=== PATIENT | female | born 1945 | race Caucasian/White ===

== ENCOUNTER 2020-09-08 12:52 | Observation (INO) | payer MEDICARE ==
[~2020-09-08] VITALS: Ht 154.9 cm; Wt 96.3 kg
[2020-09-08] MEDS ORDERED: LOSA50TA88 PO (13:25)
[2020-09-08] MEDS ORDERED: CALC1TAB63 PO (13:25)
[2020-09-08] MEDS ORDERED: ECOT81TA5 PO ×2 (13:25)
[2020-09-08] MEDS ORDERED: ATOR1TAB21 PO (13:25)
[2020-09-08] MEDS ORDERED: METF-838 PO (13:25)
[2020-09-08] MEDS ORDERED: GLIP10TA6 PO (13:25)
[2020-09-08] MEDS ORDERED: LEXA1TAB PO (13:25)
--- NOTE | 2020-09-08 13:49 | REP ---
INDICATION: neuro. COMPARISON: None. TECHNIQUE: Helical scanning is acquired. 5 mm axial images were reformatted. Coronal MPR images were generated. FINDINGS: Digital preliminary software analyst radiograph is unremarkable. Bone window settings demonstrate intact bony calvarium. The visualized paranasal sinuses are clear. No intraorbital abnormality is appreciated. On soft tissue window settings, there is fairly extensive small-vessel atherosclerotic low-density in the periventricular white matter of the supratentorial brain bilaterally. There is moderate generalized volume loss. There is low-density area in the anterior limb of the internal capsule on the right which may be lacunar infarct age indeterminate. No acute cortical infarction is appreciated. There is no evidence of intracranial hemorrhage. No extra-axial fluid collection, mass, or midline shift is seen. IMPRESSION: Generalized volume loss and small vessel changes fairly extensively in the frontal and parietal lobes bilaterally. There is low-density in the anterior limb of the internal capsule on the right of uncertain etiology. This could be a lacunar infarct, age indeterminate, or more small vessel microvascular ischemic change. There is no evidence of hemorrhage or acute cortical infarction.. <Electronically signed by Jon Miller > 09/08/20 [id number]
[2020-09-08 15:04] LABS: BASO % 0.4 % (0.0-1.0); EOS # 0.1 10^3/uL (0.0-0.5); EOS % 1.1 % (0.0-3.0); HEMATOCRIT 40.4 % (36.0-47.0); HEMOGLOBIN 13.4 g/dl (12.0-15.5); LYMPH % 11.3 % (24.0-44.0); MEAN CORPUSCULAR HGB CONC 33.2 g/dl (32.0-36.5); MEAN CORPUSCULAR VOLUME 90.6 fl (80.0-96.0); MONO # 0.7 10^3/uL (0.0-0.8); MONO % 8.7 % (2.0-8.0); NEUTROPHILS # 6.7 10^3/uL (1.5-8.5); NEUTROPHILS % 78.3 % (36.0-66.0); PLATELET COUNT, AUTOMATED 289 10^3/uL (150-450); RED BLOOD COUNT 4.46 10^6/uL (4.00-5.40); WHITE BLOOD COUNT 8.6 10^3/uL (4.0-10.0)
--- NOTE | 2020-09-08 15:14 | ECGEPIP ---
[facility] - ED Test Date: 2020-09-08 Pat Name: COURTNEY ALVARES Department: Room: - Gender: Female Pastoral Counselor: : 1945 Requested By: CRISTIANE Fierro Order Number: [id number] Reading MD: Jamey Bass Measurements Intervals [place] Rate: 81 P: 20 GA: 154 QRS: 25 QRSD: 146 T: 7 QT: 414 QTc: 480 Interpretive Statements Sinus rhythm with premature ventricular complexes or fusion complexes Right bundle branch block NO PRIORS FOR COMPARISON Electronically Signed on 09-08-2020 15:14:16 EDT by Jamey Bass
[2020-09-08 15:15] LABS: INR 0.94; PARTIAL THROMBOPLASTIN TIME 28.9 SECONDS (24.2-38.5); PROTHROMBIN TIME 12.8 SECONDS (12.5-14.3)
[2020-09-08 15:33] LABS: BLOOD UREA NITROGEN 14 MG/DL (7-18); CALCIUM LEVEL 9.1 MG/DL (8.8-10.2); CARBON DIOXIDE LEVEL 27 MEQ/L (21-32); CHLORIDE LEVEL 105 MEQ/L (98-107); CK-MB VALUE MASS 2.5 NG/ML (<3.6); CPK CREATINE PHOSPHOKINASE 132 U/L (26-192); CREATININE FOR GFR 0.71 MG/DL (0.55-1.30); GLOMERULAR FILTRATION RATE > 60.0 (>39); GLUCOSE, FASTING 214 MG/DL (70-100); MB/CK RELATIVE INDEX 1.89 (< OR =4); POTASSIUM SERUM 3.7 MEQ/L (3.5-5.1); SODIUM LEVEL 139 MEQ/L (136-145); TROPONIN I < 0.02 NG/ML (< 0.10)
[2020-09-08 15:45] LABS: RSV AMPLIFICATION NEGATIVE (NEGATIVE)
--- NOTE | 2020-09-08 15:45 | REP ---
INDICATION: CVA. COMPARISON: No comparison chest x-ray. TECHNIQUE: Portable upright AP chest radiograph. FINDINGS: The lungs are well inflated and free of infiltrate. Pleural angles are sharp. Heart size is normal. Pulmonary vasculature is not increased. The right hemidiaphragm is mildly elevated. IMPRESSION: No active disease. <Electronically signed by Jon Miller > 09/08/20 0921
[2020-09-08] MEDS ORDERED: ASPIRIN 325 MG TAB PO ONE (16:10)
[2020-09-08] MEDS ORDERED: MAALOX 30 ML SUSP *UDC PO PRN (16:40)
[2020-09-08] MEDS ORDERED: ACETAMINOPHEN TAB 650MG DOSE (2X325MG) PO PRN (16:40)
[2020-09-08] MEDS ORDERED: MOM 30ML SUSPENSION UDC PO PRN (16:40)
[2020-09-08] MEDS ORDERED: GLUCAGON INJ 1MG VIAL SC PRN (17:00)
[2020-09-08] MEDS ORDERED: DEXTROSE 50% 50 ML SYRINGE IV PRN (17:00)
[2020-09-08] MEDS ORDERED: GLUCOSE 4GM CHEW TABLET PO PRN (17:00)
--- NOTE | 2020-09-08 17:07 | HPEPDOC ---
General Date of Admission Date of Service: Sep 08, 2020 Attending Physician: JENNY STACY MD Chief Complaint The patient is a 75-year-old female admitted with a reason for visit of Dizziness. Source: Patient Exam Limitations: No limitations History of Present Illness 75 years old female with past medical history of diabetes mellitus hypertension hyperlipidemia s/p bilateral knee replacement s/p hysterectomy was in usual stat e of health till Monday when she started feeling numbness of her left hand along with the dizziness and unsteadiness on her feet she went to [facility] this morning and was referred to the emergency room to rule out CVA. Patient denies any motor deficit vision loss chest pain shortness of breath etc. patient already wants to leave the hospital she is uncomfortable staying in the emergency room, patient was informed that she needs work-up including MRI to make the final diagnosis of her symptoms she understand but she will think about it. Home Medications Scheduled Aspirin (Ecotrin) 81 Mg Tablet.dr, 81 MG PO QHS, (Reported) Atorvastatin Calcium (Atorvastatin Calcium) 20 Mg Tablet, 20 MG PO DAILY, (Reported) Calcium Carbonate/Vitamin D3 (Calcium 600-Vit D3 400 Tablet) 1 Each Tablet, 1 TAB PO BID, (Reported) Escitalopram Oxalate (Lexapro) 10 Mg Tablet, 10 MG PO DAILY, (Reported) Glipizide (Glipizide) 10 Mg Tablet, 10 MG PO BID, (Reported) Losartan Potassium (Losartan Potassium) 50 Mg Tablet, 50 MG PO QHS, (Reported) Metformin HCl (Metformin HCl ER) 500 Mg Tab.er.24h, 500 MG PO BIDWM, (Reported) Allergies Coded Allergies: latex (Verified Allergy, Intermediate, rash, 09/08/20) Past Medical History Medical History Diabetes mellitus hypertension hyperlipidemia Surgical History Status post hysterectomy and bilateral knee replacements also patient had a bilateral lumpectomy in the past Social History * Smoker: Denies Alcohol: Denies Drugs: denies As above A-FIB/CHADSVASC A-FIB History Current/History of A-Fib/PAF?: No Review of Systems Constitutional: Reports: Other (Dizziness) Eyes: Denies: Pain, Vision change, Conjunctivae inflammation, Eyelid inflammation, Redness, Other ENT: Denies: Head Aches, Ear Pain, Dysphagia, Sinus Congestion, Post Nasal Drip, Sore Throat, Epistaxis, Other Symptoms Skin: Denies: Rash, Lesions, Jaundice, Bruising, Itching, Dry, Breakdown, Nail Changes, Other Pulmonary: Denies: Dyspnea, Cough, Pleuritic Chest Pain, Other Symptoms Gastrointestinal: Denies: Nausea, Vomiting, Abdominal Pain, Diarrhea, Constipation, Melena, Hematochezia, Other Symptoms Genitourinary: Denies: Dysuria, Frequency, Incontinence, Hematuria, Retention, Other Symptoms Hematologic: Denies: Bruising, Bleeding Excessively, Petecchia, Purpura, Enlarged Lymph Nodes, Other Hematologic Endocrine: Denies: Polydipsia, Polyphagia, Polyuria, Heat Intolerance, Cold Intolerance, Other Endocrine Sx Musculoskeletal: Denies: Neck Pain, Back Pain, Shoulder Pain, Arm Pain, Hand Pain, Leg Pain, Foot Pain, Joint Pain, Muscle Pain, Spasms, Other Symptoms Neurological: Reports: Other Symptoms (Numbness of left hand dizziness unsteady gait) Psych: Denies: Mood Normal, Anxiety, Depression, Memory Issues, Thoughts of S elf Harm, Anger, Thoughts of Harming Other, Other Psych Physical Examination General Exam: Positive: Alert, Cooperative Eye Exam: Positive: PERRLA, Conjunctiva & lids normal ENT Exam: Positive: Atraumatic Neck Exam: Positive: Supple Chest Exam: Positive: Clear to auscultation, Normal air movement Heart Exam: Positive: Rate Normal, Normal S1, Normal S2 Abdomen Exam: Positive: Normal bowel sounds, Soft Extremity Exam: Positive: Other Skin Exam: Positive: Nl turgor and temperature Neuro Exam: Positive: Other (No focal motor or sensory deficit) Psych Exam: Positive: Mood NL, Oriented x 3 Vital Signs Vital Signs Date Time Temp Pulse Resp B/P (MAP) Pulse Ox O2 Delivery O2 Flow Rate FiO2 09/08/20 16:37 09/08/20 16:37 84 16 94 Room Air 09/08/20 12:54 97.1 Laboratory Data Labs 24H Laboratory Tests 2 09/08/20 14:53: Immature Granulocyte % (Auto) 0.2, Neutrophils (%) (Auto) 78.3H, Lymphocytes (%) (Auto) 11.3L, Monocytes (%) (Auto) 8.7H, Eosinophils (%) (Auto) 1.1, Basophils (%) (Auto) 0.4, Neutrophils # (Auto) 6.7, Lymphocytes # (Auto) 1.0L, Monocytes # (Auto) 0.7, Eosinophils # (Auto) 0.1, Basophils # (Auto) 0.0, Nucleated Red Blood Cells % (auto) 0.0, Prothrombin Time 12.8, Prothromb Time International Ratio 0.94, Activated Partial Thromboplast Time 28.9, Anion Gap 7L, Glomerular Filtration Rate > 60.0, Calcium Level 9.1, Total Creatine Kinase 132, Creatine Kinase MB 2.5, Creatine Kinase MB Relative Index 1.89, Troponin I < 0.02, Coronavirus (COVID-19)(PCR) NEGATIVE, Influenza Type A (RT-PCR) NEGATIVE, Influenza Type B (RT-PCR) NEGATIVE, Respiratory Syncytial Virus (PCR) NEGATIVE CBC/BMP Laboratory Tests 09/08/20 14:53 Problems (1) TIA (transient ischemic attack) Plan / VTE VTE Prophylaxis Ordered?: Yes Plan Plan Patient examined at bedside she is awake alert oriented in no apparent distress, vital signs are stable Patient CBC CMP essentially within normal limit Covid is negative troponin is less than 0.02 blood glucose is 214 CT head shows volume loss and indeterminant possibly old lacunar infarct but no acute CVA or hemorrhage Chest x-ray within normal limit, EKG shows normal sinus rhythm with occasional PVCs and right bundle branch block #1 TIA rule out CVA # 2 diabetes mellitus type 2 with possible diabetic neuropathy #3 hyperlipidemia #4 hypertension Admit patient to observation to telemetry unit Cardiac monitoring Lipid profile and hemoglobin A1c and serial troponins Patient received 1 dose of aspirin 325 mg p.o. in ED and will continue the same from tomorrow Patient already on Lipitor 20 mg p.o. daily and will continue the same Echocardiogram Bilateral carotid Dopplers MRI of the brain ordered from ED awaiting radiology procedure PT/OT/ST evaluation in a.m. Neurology consult has been requested Continue all home medications DVT prophylaxis with heparin Diet is diabetic diet Fingerstick blood sugar before every meal and at bedtime with coverage JENNY STACY MD Sep 08, 2020 17:07
[2020-09-08] MEDS: HumaLOG INSULIN (NovoLOG) PER UNIT SC SCH (17:30)
[2020-09-08] MEDS: metFORMIN XR 500MG TAB *GLUCOPHAGE XR PO SCH (18:00)
[2020-09-08] MEDS: glipiZIDE (GLUCOTROL) 5 MG TAB PO SCH (18:36)
[2020-09-08] MEDS ORDERED: LOSARTAN 50MG TABLET PO SCH (21:00)
[2020-09-08] MEDS ORDERED: ATORVASTATIN 20 MG TAB PO SCH (21:00)
--- NOTE | 2020-09-08 21:33 | REPVR ---
PROCEDURE INFORMATION: Exam: US Duplex Bilateral Extracranial Arteries Exam date and time: 09/08/2020 9:15 PM Age: 75 years old Clinical indication: Altered mental status/memory loss; Other: TIA TECHNIQUE: Imaging protocol: Real-time Duplex ultrasound scan of the bilateral carotid and vertebral arteries combining soriano scale, color Doppler and spectral waveform analysis. Bilateral exam. COMPARISON: MRA BRAIN W/O CONTRAST 09/08/2020 8:18 PM FINDINGS: Right side: The right ICA/CCA ratio is 0.7 and the peak velocity of the right internal carotid artery is 73 cm/s and and within the normal range. The amount of narrowing of the right internal carotid artery would be less than 50%. There is minimal soft plaque. The right vertebral artery is antegrade. Left side: The left ICA/CCA ratio is 0.7 and the peak velocity of the left internal carotid artery is 77 cm/s and all within the normal range. The amount of narrowing of the left internal carotid artery would be less than 50%. There is minimal soft plaque. The left vertebral artery is antegrade. IMPRESSION: No significant stenosis right or left carotid bifurcation. REFERENCES: SRU CRITERIA. The degree of internal carotid artery stenosis is based on criteria defined by the Society of Radiologists in Ultrasound (SRU). Normal is no stenosis. Mild is less than 50% stenosis. Moderate is 50-69% stenosis. Severe is greater than 69% stenosis to near occlusion. Near occlusion is a markedly narrowed lumen. Total occlusion is no detectable patent lumen. Electronically signed by: Ananda Francis On 09/08/2020 21:33:07 PM
--- NOTE | 2020-09-08 22:07 | REPVR ---
PROCEDURE INFORMATION: Exam: MR Head Without Contrast Exam date and time: 09/08/2020 8:29 PM Age: 75 years old Clinical indication: Patient HX: Dizziness, weakness, ; additional info: CVA TECHNIQUE: Imaging protocol: MR of the head without contrast. COMPARISON: CT Head without contrast 09/08/2020 1:20 PM FINDINGS: Brain: There is bright signal intensity throughout the white matter right and left hemisphere and very extensive consistent with chronic ischemic changes. No evidence of acute stroke. Cerebral ventricles: There is moderate diffuse atrophy with prominence of the ventricles. Bones/joints: Unremarkable. Paranasal sinuses: Clear paranasal sinuses. Mastoid air cells: There mastoid air cells. Orbital cavity: Unremarkable. Soft tissues: Unremarkable. Other vasculature: The vessels of the [id number] have a normal signal void. IMPRESSION: Severe chronic ischemic changes. Electronically signed by: Ananda Francis On 09/08/2020 22:07:20 PM
--- NOTE | 2020-09-08 22:12 | REPVR ---
PROCEDURE INFORMATION: Exam: MRA Head Without Contrast; Arteriography Exam date and time: 09/08/2020 8:29 PM Age: 75 years old Clinical indication: Dizziness and giddiness; Patient HX: Dizziness, weakness, ; additional info: CVA TECHNIQUE: Imaging protocol: Magnetic resonance angiography head without contrast. Exam focused on the arteries. COMPARISON: CT Head without contrast 09/08/2020 1:20 PM FINDINGS: ANTERIOR CIRCULATION: There is no evidence of aneurysm of the [id number]. There is no evidence of abnormal vessels. IMPRESSION: Normal appearing MR angiogram. Electronically signed by: Ananda Francis On 09/08/2020 22:12:03 PM
[2020-09-08] MEDS: DOCUSATE SODIUM 100MG CAPSULE PO SCH (22:41)
[2020-09-08 22:42] VITALS: BP 137/90
[2020-09-08] MEDS: HEPARIN SOD (PORCINE) 5000UNITS/ML 1ML VIAL/SYRINGE SC SCH (22:45)
[2020-09-09 06:50] LABS: HEMATOCRIT 38.4 % (36.0-47.0); HEMOGLOBIN 13.2 g/dl (12.0-15.5); MEAN CORPUSCULAR HEMOGLOBIN 31.4 pg (27.0-33.0); MEAN CORPUSCULAR HGB CONC 34.4 g/dl (32.0-36.5); MEAN CORPUSCULAR VOLUME 91.2 fl (80.0-96.0); PLATELET COUNT, AUTOMATED 254 10^3/uL (150-450); RED BLOOD COUNT 4.21 10^6/uL (4.00-5.40); WHITE BLOOD COUNT 6.6 10^3/uL (4.0-10.0)
[2020-09-09 07:13] LABS: ALBUMIN 3.2 GM/DL (3.2-5.2); ALT/SGPT 26 U/L (12-78); BILIRUBIN,TOTAL 0.9 MG/DL (0.2-1.0); BLOOD UREA NITROGEN 10 MG/DL (7-18); CALCIUM LEVEL 8.5 MG/DL (8.8-10.2); CARBON DIOXIDE LEVEL 27 MEQ/L (21-32); CHLORIDE LEVEL 107 MEQ/L (98-107); CHOLESTEROL LEVEL 138 MG/DL (<200); CHOLESTEROL RISK RATIO 2.653 (<5); CREATININE FOR GFR 0.58 MG/DL (0.55-1.30); GLOMERULAR FILTRATION RATE > 60.0 (>39); GLUCOSE, FASTING 115 MG/DL (70-100); HDL CHOLESTEROL 52 MG/DL (>40); LDL CHOLESTEROL 60 MG/DL (<100); MAGNESIUM LEVEL 1.7 MG/DL (1.8-2.4); NON-HDL-C 86 MG/DL; POTASSIUM SERUM 3.5 MEQ/L (3.5-5.1); SODIUM LEVEL 142 MEQ/L (136-145); TOTAL PROTEIN 6.3 GM/DL (6.4-8.2); TRIGLYCERIDES LEVEL 130 MG/DL (<150)
[2020-09-09 07:22] LABS: HEMOGLOBIN A1c 7.1 %
[2020-09-09] MEDS: HumaLOG INSULIN (NovoLOG) PER UNIT SC SCH ×2 (08:07→12:16)
[2020-09-09] MEDS: metFORMIN XR 500MG TAB *GLUCOPHAGE XR PO SCH (08:08)
[2020-09-09] MEDS: glipiZIDE (GLUCOTROL) 5 MG TAB PO SCH (08:08)
[2020-09-09] MEDS ORDERED: ESCITALOPRAM OXALATE 10 MG TAB (LEXAPRO) PO SCH (09:00)
[2020-09-09] MEDS ORDERED: CALCIUM/VITAMIN D 500 MG TAB PO SCH (09:00)
[2020-09-09] MEDS ORDERED: ATORVASTATIN 20 MG TAB PO SCH (09:00)
[2020-09-09] MEDS ORDERED: ASPIRIN ENTERIC 325 MG TAB PO SCH (09:00)
[2020-09-09] MEDS: DOCUSATE SODIUM 100MG CAPSULE PO SCH (09:29)
[2020-09-09] MEDS: HEPARIN SOD (PORCINE) 5000UNITS/ML 1ML VIAL/SYRINGE SC SCH (09:31)
--- NOTE | 2020-09-09 11:20 | DS.PDOC ---
Discharge Summary General Date of Admission Sep 08, 2020 at 12:53 Date of Discharge 09/09/20 Attending Physician: JENNY STACY MD Discharge Summary PROCEDURES PERFORMED DURING STAY: None. ADMITTING DIAGNOSES: 1. Dizziness, TIA rule out CVA. DISCHARGE DIAGNOSES: 1. Dizziness, TIA, CVA ruled out, possible diabetic peripheral neuropathy. COMPLICATIONS/CHIEF COMPLAINT: TIA. HISTORY OF PRESENT ILLNESS: 75 years old female with past medical history of diabetes mellitus hypertension hyperlipidemia s/p bilateral knee replacement s/p hysterectomy was in usual state of health till Monday when she started feeling numbness of her left hand along with the dizziness and unsteadiness on her feet she went to [facility] this morning and was referred to the emergency room to rule out CVA. Patient denies any motor deficit vision loss chest pain shortness of breath etc. patient already wants to leave the hospital she is uncomfortable staying in the emergency room, patientwasinformed she understands the discharge instructions that she needs work-up including MRI to make the final diagnosis of her symptoms she understand but she will think about it. HOSPITAL COURSE: Patient was admitted with a diagnosis of TIA rule out CVA. And possible diabetic peripheral neuropathy Patient is all work-up including MRI MRA of brain was essentially negative shows severe chronic ischemic changes but no acute infarct or lesion, bilateral carotid Dopplers negative with no stenosis, cardiac telemetry did not show any abnormal dangerous rhythms. Echocardiogram was done about an hour ago and prelim report shows no abnormality patient can safely be discharged home on increased dose of aspirin she is already on Lipitor 20 mg p.o. daily as well. Patient will be advised to follow-up with PCP in 1 week to arrange for neuro referral, patient was informed that she understands the discharge instructions DISCHARGE MEDICATIONS: Please see below. ALLERGIES: Please see below. PHYSICAL EXAMINATION ON DISCHARGE: VITAL SIGNS: Please see below. GENERAL: Within normal limit HEENT: PERRLA extraocular muscles intact NECK: Supple CARDIOVASCULAR EXAMINATION: S1-S2 regular RESPIRATORY EXAMINATION: Clear to A&P ABDOMINAL EXAMINATION: Benign EXTREMITIES: No clubbing sinus edema SKIN: Normal NEUROLOGICAL EXAMINATION: No focal motor or sensory deficit normal residual numbness of left arm PSYCHIATRIC EXAMINATION: Normal LABORATORY DATA: Please see below. IMAGING: As per radiology reports PROGNOSIS: Good ACTIVITY: As tolerated. DIET: Diabetic low-salt diet DISCHARGE PLAN: Home DISPOSITION: Home DISCHARGE INSTRUCTIONS: 1. As per discharge instruction. ITEMS TO FOLLOWUP ON ON OUTPATIENT: 1. Follow-up with PCP in 1 week DISCHARGE CONDITION: Stable. TIME SPENT ON DISCHARGE: 35 minutes. Vital Signs/I&Os Vital Signs Date Time Temp Pulse Resp B/P (MAP) Pulse Ox O2 Delivery O2 Flow Rate FiO2 09/09/20 07:00 96.6 81 20 128/67 (87) 97 Room Air Laboratory Data Labs 24H Laboratory Tests 2 09/08/20 14:53: Immature Granulocyte % (Auto) 0.2, Neutrophils (%) (Auto) 78.3H, Lymphocytes (%) (Auto) 11.3L, Monocytes (%) (Auto) 8.7H, Eosinophils (%) (Auto) 1.1, Basophils (%) (Auto) 0.4, Neutrophils # (Auto) 6.7, Lymphocytes # (Auto) 1.0L, Monocytes # (Auto) 0.7, Eosinophils # (Auto) 0.1, Basophils # (Auto) 0.0, Nucleated Red Blood Cells % (auto) 0.0, Prothrombin Time 12.8, Prothromb Time International Ratio 0.94, Activated Partial Thromboplast Time 28.9, Anion Gap 7L, Glomerular Filtration Rate > 60.0, Calcium Level 9.1, Total Creatine Kinase 132, Creatine Kinase MB 2.5, Creatine Kinase MB Relative Index 1.89, Troponin I < 0.02, Coronavirus (COVID-19)(PCR) NEGATIVE, Influenza Type A (RT-PCR) NEGATIVE, Influenza Type B (RT-PCR) NEGATIVE, Respiratory Syncytial Virus (PCR) NEGATIVE 09/08/20 18:20: Urine Color FRANCI, Urine Appearance CLOUDYH, Urine pH 7.0, Urine Specific [place] 1.017, Urine Protein NEGATIVE, Urine Glucose (UA) 3+H, Urine Ketones NEGATIVE, Urine Blood NEGATIVE, Urine Nitrite POSITIVEH, Urine Bilirubin NEGATIVE, Urine Urobilinogen 0.2, Urine Leukocyte Esterase 1+H, Urine WBC (Auto) 7H, Urine RBC (Auto) 0, Urine Hyaline Casts (Auto) 0, Urine Bacteria (Auto) 1+H, Urine Squamous Epithelial Cells 0, Urine Calcium Oxalate Cryst (Auto) SMALL, Urine Mucus (Auto) SMALL, Urine Sperm (Auto) 09/08/20 18:42: Bedside Glucose (Misc Panel) 93 09/08/20 22:39: Bedside Glucose (Misc Panel) 142H 09/09/20 06:26: Nucleated Red Blood Cells % (auto) 0.0, Anion Gap 8, Glomerular Filtration Rate > 60.0, Estimated Mean Plasma Glucose 157H, Hemoglobin A1c 7.1, Calcium Level 8.5L, Magnesium Level 1.7L, Total Bilirubin 0.9, Aspartate Amino Transf (AST/SGOT) 15, Alanine Aminotransferase (ALT/SGPT) 26, Alkaline Phosphatase 86, Total Protein 6.3L, Albumin 3.2, Albumin/Globulin Ratio 1.0L, Triglycerides Level 130, Total Cholesterol 138, LDL Cholesterol 60, Non-HDL Cholesterol (LDL + VLDL) 86, Total HDL Cholesterol 52, Cholesterol/HDL Ratio 2.653 09/09/20 07:51: Bedside Glucose (Misc Panel) 127H CBC/BMP Laboratory Tests 09/08/20 14:53 09/09/20 06:26 FSBS Laboratory Tests Test 09/08/20 18:42 09/08/20 22:39 09/09/20 07:51 Range/Units Bedside Glucose (Misc Panel) 93 142 127 83-110 MG/DL Microbiology Microbiology 09/08/20 Urine Culture, Received Pending Discharge Medications Scheduled Aspirin (Aspirin EC) 325 Mg Tablet.dr, 325 MG PO DAILY Atorvastatin Calcium (Atorvastatin Calcium) 20 Mg Tablet, 20 MG PO DAILY, (Reported) Calcium Carbonate/Vitamin D3 (Calcium 600-Vit D3 400 Tablet) 1 Each Tablet, 1 TAB PO BID, (Reported) Escitalopram Oxalate (Lexapro) 10 Mg Tablet, 10 MG PO DAILY, (Reported) Glipizide (Glipizide) 10 Mg Tablet, 10 MG PO BID, (Reported) Losartan Potassium (Losartan Potassium) 50 Mg Tablet, 50 MG PO QHS, (Reported) Metformin HCl (Metformin HCl ER) 500 Mg Tab.er.24h, 500 MG PO BIDWM, (Reported) Allergies Coded Allergies: latex (Verified Allergy, Intermediate, rash, 09/08/20) JENNY STACY MD Sep 09, 2020 11:20
[2020-09-09] MEDS ORDERED: ASPI32ECTA PO (11:22)
[2020-09-09 16:19] VITALS: BP 136/79
--- NOTE | 2020-09-10 09:59 | ECHO ---
ECHOCARDIOGRAM DATE OF PROCEDURE: 09/09/2020 Age: 75 Gender: Female Height: 155 cm Weight: 96 kg PATIENT LOCATION: ED, Room 6. REFERRING PHYSICIAN: JENNY STACY MD REASON FOR STUDY: Transient ischemic attack (TIA). 2D MEASUREMENTS: IVS 1.2 cm LV 4.0 cm LVPW 1.1 cm LA 4.3 cm Aorta 3.5 cm IVC 1.8 cm DOPPLER MEASUREMENT Peak velocity across the aortic valve 1.6 m/s Peak velocity across the LVOT 1.3 m/s Peak gradient across the aortic valve 11 mmHg Mean gradient across the aortic valve 6 mmHg Mitral E 0.86 Mitral A 0.90 with a ratio of less than 1.0 Maximum tricuspid valve velocity 2.4 m/s 2D COMMENTS: 1. Normal left ventricular size, wall thickness, and a normal global left ventricular systolic function with a hyperdynamic left ventricle. The estimated left ventricular systolic ejection fraction is 65% to 70%. 2. Mildly enlarged left atrium. Normal right atrium and right ventricle. 3. The atrial septum appeared to be normal without evidence of defect or shunt. 4. Normal aortic root. 5. Trace to small pericardial effusion noted, no evidence of cardiac tamponade. 6. Mildly calcified aortic valve with normal leaflet excursion. 7. Mildly calcified mitral annulus with normal anterior mitral valve leaflet motion. Normal tricuspid valve and pulmonic valve. The proximal pulmonary artery branches were not well visualized. 8. The inferior vena cava was normal in size. Central venous pressure is most likely normal. DOPPLER: Detects trace mitral regurgitation, mild tricuspid regurgitation, and trace pulmonic regurgitation. The calculated pulmonary artery systolic pressure varies between 30 to 40 mmHg. Abnormal relaxation pattern was noted across the mitral valve leaflets, as well as the mitral valve annulus consistent with features of grade 1 left ventricular diastolic dysfunction. IMPRESSION: 1. Normal global left ventricular systolic function with a hyperdynamic left ventricle. There are some features of grade 1 left ventricular diastolic dysfunction manifested by abnormal relaxation. 2. Aortic valve sclerosis with trivial aortic stenosis, but no aortic regurgitation. 3. Mitral annular calcification with trace mitral regurgitation and a mildly enlarged left atrium. 4. Mild tricuspid regurgitation with probably mild pulmonary hypertension. 5. Trace to small pericardial effusion. No evidence of cardiac tamponade.
== END 2020-09-09 16:20 | disposition home or self-care (01) ==
LOC: M ED 12:52 → M ED INP 12:53 → ENRESERV 09-09 11:36
PROVIDERS: ADMIT Internal Medicine; ATTEND Internal Medicine
DX: G45.9 Transient cerebral ischemic attack, unspecified (principal); I67.82 Cerebral ischemia; R20.0 Anesthesia of skin; R27.0 Ataxia, unspecified; E11.9 Type 2 diabetes mellitus without complications; I10 Essential (primary) hypertension; E78.5 Hyperlipidemia, unspecified; Z96.653 Presence of artificial knee joint, bilateral; F41.9 Anxiety disorder, unspecified; F32.9 Major depressive disorder, single episode, unspecified; Z79.899 Other long term (current) drug therapy; Z79.82 Long term (current) use of aspirin; Z79.84 Long term (current) use of oral hypoglycemic drugs; Z91.040 Latex allergy status
CPT/HCPCS: 36415; 70450; 70544; 70551; 71045; 80048; 80053; 80061; 81001; 82550; 82553; 83036; 83735; 84484; 85025; 85027; 85610; 85730; 87086; 87631; 92610; 93005; 93041; 93306; 93880; 94760; 96372; 97116; 97161; 97165; 97530; 99285; G0378; J1644

== ENCOUNTER → 2021-09-27 | Outpatient (REF) | payer MEDICARE ==
[~2021-09-27] MED LIST: ASPI32ECTA PO; ATOR1TAB21 PO; CALC1TAB63 PO; ECOT81TA5 PO; GLIP10TA6 PO; LEXA1TAB PO; LOSA50TA28 PO; METF-838 PO
[2021-09-27 12:46] LABS: BLOOD UREA NITROGEN 19 MG/DL (7-18); CARBON DIOXIDE LEVEL 22 MEQ/L (21-32); CHLORIDE LEVEL 108 MEQ/L (98-107); CREATININE FOR GFR 0.77 MG/DL (0.55-1.30); GLOMERULAR FILTRATION RATE > 60.0 (>39); GLUCOSE, FASTING 181 MG/DL (70-100); HEMOGLOBIN A1c 7.5 %; POTASSIUM SERUM 4.3 MEQ/L (3.5-5.1); SODIUM LEVEL 140 MEQ/L (136-145)
== END ==
LOC: M LABDRAWC 11:30
DX: E11.9 Type 2 diabetes mellitus without complications (principal)